=== PATIENT | male | born 1975 | race Caucasian/White ===

== ENCOUNTER 2017-07-17 16:46 | Emergency (ER) | payer BC ==
--- NOTE | 2017-07-17 17:03 | PDOC ---
Rapid Medical Evaluation Time Seen by Provider: 07/17/17 16:58 Medical Evaluation: 07/17/17 16:59 The patient presents with a chief complaint of: Pain to both knees, L worse than R for two months. Pain worse last nigh and pt was unable to sleep. currently rates the pain an 8/10. Pt is a deal. I have performed a brief in-person evaluation of this patient; Pertinent physical exam findings: ambulatory, in no respiratory distress. TTP L medial knee. ROM and strength intact b/l I have ordered the following: nothing The patient will proceed to the ED for further evaluation.
[2017-07-17 17:04] VITALS: BP 158/96; PULSE 85; TEMP 98.5; BMI 36.0
--- NOTE | 2017-07-17 17:38 | PDOC ---
History of Present Illness - General Chief Complaint: Pain Stated Complaint: KNEE PAIN Time Seen by Provider: 07/17/17 16:58 History Source: Patient Exam Limitations: No Limitations - History of Present Illness Initial Comments: CHIEF COMPLAINT: 41 y/o afebrile male c/o b/l knee pain x 2 months, left worse than right. HISTORY OF PRESENT ILLNESS: The patient works in [employer] and states he goes up and down a lot, often carrying heavy loads. He's been having knee pain for the past 2 months, worse for the past 2 days. He denies fall or trauma to knee. He states going down the stairs is the hardest. He took 400mg of Advil for pain with little relief. Vital signs on arrival are within normal limits. REVIEW OF SYSTEMS: GENERAL/CONSTITUTIONAL: No fever/chills. No weakness. No weight change. MUSCULOSKELETAL: +b/l knee pain, worse on left. No neck or back pain. SKIN: No rash or easy bruising. NEUROLOGIC: No headache, vertigo, loss of consciousness, or loss of sensation. PHYSICAL EXAM: VITAL_SIGNS: within normal limits GENERAL_APPEARANCE: alert, cooperative, no obvious discomfort. MENTAL_STATUS: speech clear, oriented X 3, responds appropriately to questions. NEURO: motor intact and sensory intact in injured extremity. EXTREMITIES: Full flexion and extension of b/l LEs. No swelling to knees b/l. Pain with palpation of medial joint line in b/l knees. No erythema or warmth to b/l knees. SKIN: warm, dry, good color. Past History - Past Medical History Allergies/Adverse Reactions: Allergies Allergy/AdvReac Type Severity Reaction Status Date / Time No Known Allergies Allergy Verified 07/17/17 17:01 Home Medications: Ambulatory Orders NK [No Known Home Medication] 07/17/17 COPD: No Other medical history: DENIES. - Surgical History Appendectomy: Yes - Suicide/Smoking/Psychosocial Hx Smoking History: Never smoked *Physical Exam - Vital Signs Last Vital Signs Temp Pulse Resp BP Pulse Ox 98.5 F 85 16 158/96 100 07/17/17 17:01 07/17/17 17:01 07/17/17 17:01 07/17/17 17:01 07/17/17 17:01 Medical Decision Making - Medical Decision Making A/P: 41 y/o male with b/l knee osteoarthritis. Plan is to wrap both knees with JACKLYN bandage, give IM toradol, RICE instructions and ortho follow up. SUggested refraining from persistent bending and lifting. Patient instructed to return to the ER with any worsening or concerning symptoms. The patient verbalizes understanding of all instructions, has no further questions and is awaiting discharge. *DC/Admit/Observation/Transfer Diagnosis at time of Disposition: Knee pain, bilateral Qualifiers: Chronicity: acute Qualified Code(s): M25.561 - Pain in right knee; M25.562 - Pain in left knee; M25.562 - Pain in left knee Osteoarthritis Qualifiers: Osteoarthritis location: knee Osteoarthritis type: unspecified Laterality: bilateral Qualified Code(s): M17.0 - Bilateral primary osteoarthritis of knee - Discharge Dispostion Disposition: HOME Condition at time of disposition: Good - Referrals Referrals: Frankie Swain [Primary Care Provider] - Brad Krause MD [Staff Physician] - - Patient Instructions Printed Discharge Instructions: DI for Osteoarthritis, DI for Knee Pain, How To Perform RICE (Rest, Ice, Compress, Elevate) Additional Instructions: Discharge Instructions: -You have arthritis in both of your knees -You may have torn soft tissue in your knees -Please use the JACKLYN bandage for comfort -Please follow RICE instructions -Take 600mg of Advil every 6 hours with food for pain -Follow up with Dr. Krause within 2 weeks -Return to the ER with any worsening or concerning symptoms. Instrucciones de descarga: -Tienes artritis en ambas rodillas -Puede sae rasgado tejido blando en liz rodillas -Por favor use el vendaje JACKLYN para mayor comodidad -Por favor, siga las instrucciones de RICE - [place] 600 mg de Advil cada 6 horas con alimentos para el dolor -Siga con el Dr. Krause dentro de 2 semanas -Volver a la ortega de emergencias con cualquier empeoramiento o sntomas. - Post Discharge Activity Forms/Work/School Notes: Back to Work
[2017-07-17] MEDS ORDERED: KETOROLAC TROMETHAMINE 60 MG/2 ML VIAL IM ONE (17:48)
[2017-07-17] MEDS ORDERED: KETOROLAC TROMETHAMINE 60 MG/2 ML VIAL ONE (17:51)
== END 2017-07-17 18:05 | disposition home or self-care (01) ==
LOC: JERFT 16:46
PROC: 3E0233Z Introduction of Anti-inflammatory into Muscle, Percutaneous Approach (ICD-10-PCS; principal; 2017-07-17)
DX: M17.0 Bilateral primary osteoarthritis of knee (principal)
CPT/HCPCS: 99281-25

== ENCOUNTER 2020-04-09 09:47 | Emergency (ER) | payer BC ==
[2020-04-09 10:18] VITALS: BP 121/78; PULSE 100; TEMP 97.8; BMI 39.9
== END 2020-04-09 11:46 | disposition home or self-care (01) ==
LOC: JER 09:47
DX: U07.1 COVID-19 (principal); R05 Cough
CPT/HCPCS: 71046-TC-FY; 99284-25; C9803; U0003

== ENCOUNTER 2022-06-17 01:51 | Inpatient (IN) | payer BC ==
[2022-06-17 02:02] VITALS: BMI 36.6
[2022-06-17] MEDS ORDERED: ONDANSETRON 4 MG/2 ML VIAL IVPUSH ONE (02:34)
[2022-06-17] MEDS ORDERED: FAMOTIDINE 20 MG/50 ML IVPB 20 MG/50 ML MG IVPB ONE ×2 (02:34→02:37)
[2022-06-17] MEDS ORDERED: MAG HYDROX/AL HYDROX/SIMETH 30 ML UNIT-DOSE CUP PO ONE (02:35)
[2022-06-17] MEDS ORDERED: LACTATED RINGERS SOLUTION 1000 ML INFUS.BAG IV ONE (02:35)
[2022-06-17] MEDS ORDERED: ONDANSETRON 4 MG/2 ML VIAL ONE (02:37)
[2022-06-17] MEDS ORDERED: MAG HYDROX/AL HYDROX/SIMETH 30 ML UNIT-DOSE CUP ONE (02:37)
[2022-06-17 02:40] LABS: EPI CELLS 2 /uL (0-25.1); HYALINE CASTS 1 /uL (0-3.1); PH,URINE 5.5 (5.0-8.0); URINE APPEARANCE CLEAR; URINE BACTERIA 19 /uL (0-1359); URINE BILIRUBIN NEGATIVE (NEGATIVE); URINE COLOR YELLOW; URINE GLUCOSE (UA) 2+ (NEGATIVE); URINE KETONE TRACE (NEGATIVE); URINE LEUK ESTERASE NEGATIVE (NEGATIVE); URINE NITRITE NEGATIVE (NEGATIVE); URINE PROTEIN 1+ (NEGATIVE); URINE RBC 10 /uL (0-23.9); URINE WBC 3 /uL (0-25.8)
[2022-06-17] MEDS ORDERED: ACETAMINOPHEN 1000 MG/100 ML BAG IVPB ONE (03:00)
[2022-06-17] MEDS ORDERED: morphine CARPU-JECT 2 MG/1 ML DISP.SYRIN IVPUSH ONE (03:01)
[2022-06-17 03:34] LABS: BASO % 0.4 % (0-2.0); EOS % 0.4 % (0-4.5); HEMATOCRIT 37.3 % (35.4-49); HEMOGLOBIN 12.9 GM/dL (11.7-16.9); LYMPH % 28.8 % (8-40); MCH 32.9 pg (25.7-33.7); MCHC 34.7 g/dl (32.0-35.9); MEAN CELL VOLUME 94.6 fl (80-96); MEAN PLT VOLUME 9.7 fl (7.5-11.1); MONO % 5.7 % (3.8-10.2); NEUT % 64.7 % (42.8-82.8); PLATELET COUNT 175 10^3/uL (134-434); RBC 3.94 M/mm3 (4.00-5.60); RDW 14.7 % (11.9-15.9); WHITE BLOOD COUNT 7.2 K/mm3 (4.0-10.0)
[2022-06-17 03:54] LABS: BLOOD UREA NITROGEN 13.1 mg/dL (7-18); CALCIUM 8.6 mg/dL (8.5-10.1)
[2022-06-17 03:55] LABS: ALBUMIN 3.5 g/dl (3.4-5.0)
[2022-06-17 03:57] LABS: CREATININE 1.2 mg/dL (0.55-1.3)
[2022-06-17 03:59] LABS: BILIRUBIN,TOTAL 0.4 mg/dL (0.2-1); TOT PROT 7.5 g/dl (6.4-8.2)
[2022-06-17] MEDS ORDERED: ONDANSETRON 4 MG/2 ML VIAL IVPUSH PRN (11:44)
[2022-06-17] MEDS ORDERED: LACTATED RINGERS SOLUTION 1,000 ML/1,000 ML INFUS.BAG IV SCH (11:45)
[2022-06-17] MEDS ORDERED: PANTOPRAZOLE SODIUM 40 MG VIAL ONE (12:23)
[2022-06-17] MEDS ORDERED: THIAMINE HCL 200 MG/2 ML VIAL ONE (12:23)
[2022-06-17] MEDS: PANTOPRAZOLE SODIUM 40 MG VIAL IVPUSH SCH (12:24)
[2022-06-17] MEDS ORDERED: THIAMINE HCL 200 MG/2 ML VIAL IVPB ONE (12:45)
[2022-06-17] MEDS ORDERED: PIPERACILLIN/TAZOB 3.375 GM 3.375 GM in DEXTROSE 5%-WATER - 50 ML IVPB SCH (18:00)
[2022-06-17] MEDS: HEPARIN NA (PORCINE) 5,000 UNITS/ML 1ML VIAL SQ SCH ×2 (18:37→22:44)
[2022-06-17] MEDS: INSULIN SLIDING SCALE (NOVOLOG) 1 VIAL SQ SCH (18:37)
[2022-06-17] MEDS ORDERED: PIPERACILLIN/TAZOB 3.375 GM 3.375 GM/50 ML BAG IVPB ONE (18:46)
[2022-06-17] MEDS: PIPERACILLIN/TAZOB 3.375 GM 3.375 GM in DEXTROSE 5%-WATER - 50 ML IVPB SCH (19:11)
[2022-06-17 22:05] LABS: BASO % 0.6 % (0-2.0); EOS % 0.2 % (0-4.5); HEMATOCRIT 37.7 % (35.4-49); HEMOGLOBIN 12.7 GM/dL (11.7-16.9); LYMPH % 27.1 % (8-40); MCH 31.5 pg (25.7-33.7); MCHC 33.8 g/dl (32.0-35.9); MEAN CELL VOLUME 93.4 fl (80-96); MEAN PLT VOLUME 9.6 fl (7.5-11.1); MONO % 9.9 % (3.8-10.2); NEUT % 62.2 % (42.8-82.8); PLATELET COUNT 149 10^3/uL (134-434); RBC 4.04 M/mm3 (4.00-5.60); RDW 14.4 % (11.9-15.9); WHITE BLOOD COUNT 6.7 K/mm3 (4.0-10.0)
[2022-06-17 22:53] LABS: INR 1.24 (0.83-1.09); PROTHROMBIN TIME (PATIENT) 14.3 SEC (9.7-13.0)
[2022-06-17 23:31] LABS: MAGNESIUM 1.8 mg/dL (1.8-2.4)
[2022-06-17 23:34] LABS: ALBUMIN 3.4 g/dl (3.4-5.0); BLOOD UREA NITROGEN 11.2 mg/dL (7-18); PHOSPHOROUS 3.2 mg/dL (2.5-4.9)
[2022-06-17 23:36] LABS: BILIRUBIN,DIRECT 0.3 mg/dL (0.0-0.2)
[2022-06-17 23:38] LABS: BILIRUBIN,TOTAL 0.7 mg/dL (0.2-1)
[2022-06-18] MEDS: PIPERACILLIN/TAZOB 3.375 GM 3.375 GM in DEXTROSE 5%-WATER - 50 ML IVPB SCH ×2 (01:55→09:26)
[2022-06-18] MEDS: INSULIN SLIDING SCALE (NOVOLOG) 1 VIAL SQ SCH ×3 (06:12→17:06)
[2022-06-18 08:54] LABS: INR 1.24 (0.83-1.09); PROTHROMBIN TIME (PATIENT) 14.4 SEC (9.7-13.0)
[2022-06-18 08:56] LABS: BASO % 0.8 % (0-2.0); EOS % 1.1 % (0-4.5); HEMATOCRIT 38.4 % (35.4-49); HEMOGLOBIN 13.3 GM/dL (11.7-16.9); LYMPH % 45.4 % (8-40); MCHC 34.6 g/dl (32.0-35.9); MEAN CELL VOLUME 92.5 fl (80-96); MONO % 9.4 % (3.8-10.2); NEUT % 43.3 % (42.8-82.8); PLATELET COUNT 142 10^3/uL (134-434); RBC 4.15 M/mm3 (4.00-5.60); RDW 14.4 % (11.9-15.9); WHITE BLOOD COUNT 4.5 K/mm3 (4.0-10.0)
[2022-06-18] MEDS ORDERED: CYANOCOBALAMIN (VITAMIN B-12) 1000 MCG/1 ML VIAL IM ONE (09:00)
[2022-06-18 09:10] LABS: CALCIUM 8.7 mg/dL (8.5-10.1)
[2022-06-18 09:13] LABS: BILIRUBIN,TOTAL 1.1 mg/dL (0.2-1); TOT PROT 6.5 g/dl (6.4-8.2)
[2022-06-18 09:14] LABS: BLOOD UREA NITROGEN 10.9 mg/dL (7-18); CREATININE 1.1 mg/dL (0.55-1.3)
[2022-06-18] MEDS: PANTOPRAZOLE SODIUM 40 MG VIAL IVPUSH SCH (09:26)
[2022-06-18] MEDS: KCL 10 MEQ IVPB 10 MEQ/100 ML INFUS.BAG IVPB SCH ×3 (09:27→13:39)
[2022-06-18] MEDS: CYANOCOBALAMIN 1,000 MCG TABLET (FP) PO SCH (10:45)
[2022-06-18] MEDS: LACTATED RINGERS SOLUTION 1,000 ML/1,000 ML INFUS.BAG IV SCH ×3 (13:56→22:50)
[2022-06-19] MEDS: INSULIN SLIDING SCALE (NOVOLOG) 1 VIAL SQ SCH ×3 (06:59→16:46)
[2022-06-19] MEDS: CYANOCOBALAMIN 1,000 MCG TABLET (FP) PO SCH (09:48)
[2022-06-19 10:11] LABS: BASO % 0.7 % (0-2.0); EOS % 1.3 % (0-4.5); HEMATOCRIT 39.4 % (35.4-49); HEMOGLOBIN 13.4 GM/dL (11.7-16.9); MCH 32.2 pg (25.7-33.7); MCHC 34.1 g/dl (32.0-35.9); MEAN CELL VOLUME 94.4 fl (80-96); MEAN PLT VOLUME 10.2 fl (7.5-11.1); MONO % 7.1 % (3.8-10.2); NEUT % 53.9 % (42.8-82.8); PLATELET COUNT 145 10^3/uL (134-434); RBC 4.17 M/mm3 (4.00-5.60); RDW 14.1 % (11.9-15.9)
[2022-06-19 10:13] LABS: INR 1.17 (0.83-1.09); PROTHROMBIN TIME (PATIENT) 13.5 SEC (9.7-13.0)
[2022-06-19 10:41] LABS: BLOOD UREA NITROGEN 9.6 mg/dL (7-18); CALCIUM 9.2 mg/dL (8.5-10.1)
[2022-06-19 10:42] LABS: ALBUMIN 3.4 g/dl (3.4-5.0)
[2022-06-19 10:45] LABS: CREATININE 1.1 mg/dL (0.55-1.3)
[2022-06-19 10:46] LABS: BILIRUBIN,TOTAL 1.2 mg/dL (0.2-1); TOT PROT 7.2 g/dl (6.4-8.2)
[2022-06-19] MEDS: PANTOPRAZOLE SODIUM 40 MG VIAL IVPUSH SCH (11:12)
[2022-06-19] MEDS: LACTATED RINGERS SOLUTION 1,000 ML/1,000 ML INFUS.BAG IV SCH ×2 (11:18→13:21)
[2022-06-19] MEDS ORDERED: INSULIN (NOVOLOG) ASPART 100 UNITS/ML 10ML VIAL ONE ×2 (11:28→16:57)
[2022-06-19] MEDS: KCL 10 MEQ IVPB 10 MEQ/100 ML INFUS.BAG IVPB SCH ×3 (11:37→14:21)
[2022-06-19] MEDS: HEPARIN NA (PORCINE) 5,000 UNITS/ML 1ML VIAL SQ SCH ×2 (13:33→22:15)
[2022-06-20] MEDS: LACTATED RINGERS SOLUTION 1,000 ML/1,000 ML INFUS.BAG IV SCH (02:58)
[2022-06-20] MEDS: HEPARIN NA (PORCINE) 5,000 UNITS/ML 1ML VIAL SQ SCH (06:32)
[2022-06-20] MEDS: INSULIN SLIDING SCALE (NOVOLOG) 1 VIAL SQ SCH ×3 (06:33→17:00)
[2022-06-20 08:48] LABS: BASO % 0.6 % (0-2.0); EOS % 2.3 % (0-4.5); HEMATOCRIT 36.5 % (35.4-49); HEMOGLOBIN 12.5 GM/dL (11.7-16.9); LYMPH % 40.4 % (8-40); MCH 32.2 pg (25.7-33.7); MCHC 34.3 g/dl (32.0-35.9); MEAN CELL VOLUME 93.9 fl (80-96); MEAN PLT VOLUME 10.1 fl (7.5-11.1); MONO % 8.4 % (3.8-10.2); NEUT % 48.3 % (42.8-82.8); PLATELET COUNT 124 10^3/uL (134-434); RBC 3.88 M/mm3 (4.00-5.60); RDW 13.9 % (11.9-15.9)
[2022-06-20 09:05] LABS: ALBUMIN 3.2 g/dl (3.4-5.0); CALCIUM 8.9 mg/dL (8.5-10.1)
[2022-06-20 09:06] LABS: BLOOD UREA NITROGEN 11.9 mg/dL (7-18)
[2022-06-20 09:08] LABS: CREATININE 0.9 mg/dL (0.55-1.3)
[2022-06-20 09:10] LABS: BILIRUBIN,TOTAL 0.9 mg/dL (0.2-1); TOT PROT 6.7 g/dl (6.4-8.2)
[2022-06-20 09:20] LABS: INR 1.17 (0.83-1.09); PROTHROMBIN TIME (PATIENT) 13.5 SEC (9.7-13.0)
[2022-06-20] MEDS: PANTOPRAZOLE SODIUM 40 MG VIAL IVPUSH SCH (09:57)
[2022-06-20] MEDS: CYANOCOBALAMIN 1,000 MCG TABLET (FP) PO SCH (09:57)
[2022-06-20] MEDS ORDERED: CEFAZOLIN SODIUM 2 GM in DEXTROSE 5%-WATER 100 ML IVPB ONE (11:30)
[2022-06-20] MEDS ORDERED: ceFAZolin 2 GRAM PREMIX BAG IVPB ONE (11:30)
[2022-06-20] MEDS ORDERED: CEFAZOLIN SODIUM 2 GM VIAL IVPB ONE (11:30)
[2022-06-20] MEDS ORDERED: PROPOFOL 20 ML ONE (12:22)
[2022-06-20] MEDS ORDERED: MIDAZOLAM HCL 2 MG/2 ML SINGLE DOSE VIAL ONE (12:22)
[2022-06-20] MEDS ORDERED: ROCURONIUM BROMIDE 50 MG/5 ML SYRINGE ONE ×2 (12:22→13:21)
[2022-06-20] MEDS ORDERED: DEXAMETHASONE SOD PHOSPHATE 4 MG/1 ML VIAL ONE (12:46)
[2022-06-20] MEDS ORDERED: GLYCOPYRROLATE 0.2 MG/1 ML VIAL ONE (12:46)
[2022-06-20] MEDS ORDERED: ONDANSETRON 4 MG/2 ML VIAL ONE (12:46)
[2022-06-20] MEDS ORDERED: NEOSTIGMINE METHYLSULFATE 0.5 MG/1 ML - 10 ML MDV ONE (12:46)
[2022-06-20] MEDS ORDERED: KETOROLAC TROMETHAMINE 30 MG/1 ML VIAL ONE (12:46)
[2022-06-20] MEDS ORDERED: BUPIVACAINE HCL/PF 0.25% (2.5MG/ML) 10 ML VIAL IJ ONE ×3 (14:06)
[2022-06-20] MEDS ORDERED: ACETAMINOPHEN 1000 MG/100 ML BAG IVPB ONE (14:38)
[2022-06-20] MEDS ORDERED: ONDANSETRON 4 MG/2 ML VIAL IVPUSH PRN (14:38)
[2022-06-20] MEDS ORDERED: oxyCODONE HCL 5 MG TABLET PO PRN (14:39)
[2022-06-20] MEDS ORDERED: KETOROLAC TROMETHAMINE 15 MG/ML VIAL IVPUSH PRN (14:42)
[2022-06-20] MEDS ORDERED: LACTATED RINGERS SOLUTION 1,000 ML IV SCH (14:45)
[2022-06-20] MEDS ORDERED: ACETAMINOPHEN 1000 MG/100 ML BAG IVPB PRN (14:53)
[2022-06-20] MEDS ORDERED: ACETAMINOPHEN INJECTION 100 ML IVPB ONE (15:06)
[2022-06-20] MEDS ORDERED: INSULIN SLIDING SCALE (NOVOLOG) 1 VIAL SQ SCH (16:30)
[2022-06-20] MEDS: DOCUSATE SODIUM 100 MG CAPSULE (FP) PO SCH (22:09)
[2022-06-21] MEDS: INSULIN SLIDING SCALE (NOVOLOG) 1 VIAL SQ SCH ×3 (07:43→16:53)
[2022-06-21 08:16] LABS: INR 1.23 (0.83-1.09); PROTHROMBIN TIME (PATIENT) 14.2 SEC (9.7-13.0)
[2022-06-21 08:19] LABS: BASO % 0.2 % (0-2.0); HEMATOCRIT 35.5 % (35.4-49); HEMOGLOBIN 12.3 GM/dL (11.7-16.9); LYMPH % 17.3 % (8-40); MCH 32.4 pg (25.7-33.7); MCHC 34.5 g/dl (32.0-35.9); MEAN CELL VOLUME 93.7 fl (80-96); MEAN PLT VOLUME 10.4 fl (7.5-11.1); NEUT % 76.5 % (42.8-82.8); PLATELET COUNT 140 10^3/uL (134-434); RBC 3.79 M/mm3 (4.00-5.60); RDW 13.8 % (11.9-15.9); WHITE BLOOD COUNT 8.1 K/mm3 (4.0-10.0)
[2022-06-21 08:36] LABS: CALCIUM 9.1 mg/dL (8.5-10.1)
[2022-06-21 08:37] LABS: ALBUMIN 3.2 g/dl (3.4-5.0); BLOOD UREA NITROGEN 10.4 mg/dL (7-18)
[2022-06-21 08:40] LABS: CREATININE 0.9 mg/dL (0.55-1.3)
[2022-06-21 08:41] LABS: TOT PROT 6.6 g/dl (6.4-8.2)
[2022-06-21 08:42] LABS: BILIRUBIN,TOTAL 0.9 mg/dL (0.2-1)
[2022-06-21] MEDS: CYANOCOBALAMIN 1,000 MCG TABLET (FP) PO SCH (09:19)
[2022-06-21] MEDS: DOCUSATE SODIUM 100 MG CAPSULE (FP) PO SCH ×2 (09:19→21:03)
[2022-06-21] MEDS: PANTOPRAZOLE SODIUM 40 MG VIAL IVPUSH SCH (09:19)
[2022-06-22] MEDS: INSULIN SLIDING SCALE (NOVOLOG) 1 VIAL SQ SCH ×2 (06:18→11:52)
[2022-06-22 09:05] VITALS: BP 126/70; PULSE 58; RESP 20; TEMP 98.1
[2022-06-22] MEDS: PANTOPRAZOLE SODIUM 40 MG VIAL IVPUSH SCH (09:14)
[2022-06-22] MEDS: CYANOCOBALAMIN 1,000 MCG TABLET (FP) PO SCH (09:14)
[2022-06-22] MEDS: DOCUSATE SODIUM 100 MG CAPSULE (FP) PO SCH (09:14)
[2022-06-22 10:14] LABS: BASO % 0.5 % (0-2.0); EOS % 1.4 % (0-4.5); HEMATOCRIT 37.9 % (35.4-49); HEMOGLOBIN 12.7 GM/dL (11.7-16.9); MCH 31.3 pg (25.7-33.7); MCHC 33.4 g/dl (32.0-35.9); MEAN CELL VOLUME 93.8 fl (80-96); MEAN PLT VOLUME 10.1 fl (7.5-11.1); NEUT % 61.1 % (42.8-82.8); PLATELET COUNT 126 10^3/uL (134-434); RBC 4.04 M/mm3 (4.00-5.60); WHITE BLOOD COUNT 7.4 K/mm3 (4.0-10.0)
[2022-06-22 10:18] LABS: INR 1.15 (0.83-1.09); PROTHROMBIN TIME (PATIENT) 13.3 SEC (9.7-13.0)
[2022-06-22 10:52] LABS: ALBUMIN 3.4 g/dl (3.4-5.0); CALCIUM 8.7 mg/dL (8.5-10.1)
[2022-06-22 10:53] LABS: BLOOD UREA NITROGEN 13.4 mg/dL (7-18)
[2022-06-22 10:56] LABS: CREATININE 1.1 mg/dL (0.55-1.3)
[2022-06-22 10:57] LABS: BILIRUBIN,TOTAL 0.6 mg/dL (0.2-1)
== END 2022-06-22 13:37 | disposition home or self-care (01) | DRG 419 ==
LOC: JER 01:51 → JERBED 11:24 → J6S 19:38
PROVIDERS: ADMIT Internal Medicine; ATTEND Internal Medicine
PROC: 0FT44ZZ Resection of Gallbladder, Percutaneous Endoscopic Approach (ICD-10-PCS; principal; 2022-06-20 12:00)
DX: K80.12 Calculus of gallbladder with acute and chronic cholecystitis without obstruction (principal); K70.0 Alcoholic fatty liver; F10.10 Alcohol abuse, uncomplicated; E11.9 Type 2 diabetes mellitus without complications; R74.01 Elevation of levels of liver transaminase levels; R11.2 Nausea with vomiting, unspecified; K29.20 Alcoholic gastritis without bleeding; E66.9 Obesity, unspecified; Z68.36 Body mass index [BMI] 36.0-36.9, adult; R16.0 Hepatomegaly, not elsewhere classified
CPT/HCPCS: 0241U-QW; 36415; 74181-TC; 76705-TC; 78226-TC; 80048; 80053; 80076; 81003; 82550; 82607; 82962; 82977; 83036; 83690; 83735; 84100; 84484; 85025; 85610; 86704; 86708; 86803; 87086; 87340; 87517; 88304-TC; 93005; 93010; 94760; 99285-25; A9537; J1644